=== PATIENT | male | born 1960 | race Caucasian/White ===

== ENCOUNTER 2019-10-28 11:29 | Emergency (ER) | payer MEDICARE, SELFPAY ==
[2019-10-28 12:04] VITALS: BP 120/81; PULSE 82; RESP 17; TEMP 37.1; O2SAT 97; BMI 18.0
--- NOTE | 2019-10-28 14:05 | W.ED.GENADLT ---
HPI - General Adult General: Chief complaint: General Medical Stated complaint: head cold/throat pain Time Seen by Provider: 10/28/19 14:04 Source: patient and family Mode of arrival: ambulatory Limitations: no limitations History of Present Illness: HPI narrative: Patient is a 59-year-old male with complaints of cough, congestion, sore throat over the past 1 to 2 days Onset (ago): day(s) Severity: mild Relieving factors: none Exacerbating factors: none Associated symptoms: Reports no associated symptoms; Deny chest pain, dyspnea, headache(s), malaise, nausea, rash, palpitations, syncope or vomiting Treatments prior to arrival: none Review of Systems Const: Denies: fever, chills, body aches, change in appetite, fatigue, malaise or night sweats Eyes: Denies: change in vision or blurry vision ENMT: Reports: throat pain, painful swallowing, nasal discharge and nasal congestion; Denies: enlarged tonsils, mouth pain, swelling of lips/tongue, oral sores/lesions, dental pain, ear pain, ear discharge, tinnitus, nose bleeds, post nasal drip or facial/sinus pain Card: Denies: chest pain, palpitations, irregular heart rhythm, lightheadedness, syncope or shortness of breath on exertion Resp: Reports: productive cough and chest congestion; Denies: shortness of breath, wheezing, stridor, pain on inspiration or coughing up blood GI: Denies: abdominal pain, nausea, vomiting, heartburn/indigestion or diarrhea : Denies: difficulty urinating or painful urination Musc: Denies: neck pain, back pain or joint pain Skin/Breast: Denies: rash Neuro: Denies: headache PFSH ED PFSH: Statuses (acute, chronic, etc) shown below reflect problem list status as previously entered and may not be historically accurate Social History Smoking and tobacco status: never smoked Physical Exam Const: COMMON NORMALS: no apparent distress, oriented x3 and alert GENERAL APPEARANCE: cooperative HENMT: COMMON NORMALS: normocephalic, head/scalp atraumatic, external ears normal, EAC's normal, TM's normal bilaterally and external nose normal HEAD & SCALP: normal to inspection, normocephalic and atraumatic FACE & SINUS: normal facial exam NOSE: external nose normal EXTERNAL EAR: Yes external ears normal EXTERNAL AUDITORY CANAL: EAC's normal TYMPANIC MEMBRANE: TM's normal bilaterally MOUTH: oral and palatal mucosa normal THROAT: posterior oropharynx normal, tonsils normal and uvula midline Eye: COMMON NORMALS: PERRL and EOMs intact bilaterally PUPIL: Yes PERRL Resp: COMMON NORMALS: normal respiratory effort, no retractions, no use of accessory muscles and clear to auscultation bilaterally AUSCULTATION: clear to auscultation bilaterally Cardio: COMMON NORMALS: regular rate and regular rhythm RATE: regular rate RHYTHM: regular rhythm Neuro: COMMON NORMALS: oriented x3 SENSORIUM/ORIENTATION: Yes alert Skin: COMMON NORMALS: no rashes or lesions noted GENERAL SKIN EXAM: no rashes or lesions noted Course Vital Signs: Vital signs: Vital Signs Temperature 98.7 F 10/28/19 12:04 Pulse Rate 82 10/28/19 12:04 Respiratory Rate 17 10/28/19 12:04 Blood Pressure 120/81 10/28/19 12:04 Pulse Oximetry 97 10/28/19 12:04 Discharge Plan Discharge Patient Disposition: Home, Self-Care Clinical Impression: Upper respiratory infection Condition: Stable Prescriptions: No Action garlic 1,000 mg Capsule 1,000 mg PO DAILY RF: 0 iron 325 mg (65 mg iron) Tablet 65 mg PO DAILY RF: 0 Vitamin D2 50,000 unit Capsule See Rx Instructions .ROUTE .COMPLEX RF: 0 fluticasone propionate 50 mcg/actuation [place],Suspension 1 spray INTRANASAL DAILY RF: 0 loratadine 10 mg Tablet 10 mg PO DAILY RF: 0 potassium chloride 20 mEq Tablet Extended Release 20 meq PO BID RF: 0 mupirocin 2 % Ointment 1 applic TOPICAL BID RF: 0 Discharge Orders: Discharge Order (Routine); Ordered 10/28/19 Ordered By: Maggi Alfaro Referrals: Mikayla Alfonso FNP-C [Primary Care Provider] - Discharge Diet: Usual diet Activity Restrictions/Additional Instructions: Follow up with primary care in a week for continued symptoms. As discussed you may use [id number] throat lozenges and Mucinex DM to help with cough/congestion. Coding Level of Care Code ED Test Lead Application Testing for Rossy Delgado
== END 2019-10-28 14:23 | disposition home or self-care (01) ==
PROVIDERS: Emergency Provider Emergency Medicine; Family Provider Nurse Practitioner Family; PCP Nurse Practitioner Family
DX: J06.9 Acute upper respiratory infection, unspecified (principal)
CPT/HCPCS: 99281

== ENCOUNTER → 2019-11-19 15:29 | Outpatient (BNVA) | payer MEDICARE, MEDICAID, SELFPAY | PROVIDERS: Family Provider Nurse Practitioner Family; PCP Nurse Practitioner Family; Visit Provider Nurse Practitioner Family | DX: Z13.6 Encounter for screening for cardiovascular disorders (principal); E87.6 Hypokalemia; E61.1 Iron deficiency; J98.8 Other specified respiratory disorders; E55.9 Vitamin D deficiency, unspecified | CPT/HCPCS: 80053; 80061; 84443; 85025 ==

== ENCOUNTER → 2020-04-13 14:19 | Outpatient (BNVA) | payer MEDICARE, MEDICAID, SELFPAY | PROVIDERS: Family Provider Nurse Practitioner Family; PCP Nurse Practitioner Family; Visit Provider Nurse Practitioner Family | DX: E61.1 Iron deficiency (principal); E55.9 Vitamin D deficiency, unspecified; E87.6 Hypokalemia | CPT/HCPCS: 80053; 82306; 82728; 83550; 85025 ==

== ENCOUNTER → 2021-02-25 13:39 | Outpatient (BNVA) | payer MEDICARE, SELFPAY | PROVIDERS: Family Provider Nurse Practitioner Family; PCP Nurse Practitioner Family; Visit Provider Nurse Practitioner Family | DX: E87.6 Hypokalemia (principal); E55.9 Vitamin D deficiency, unspecified; Z13.6 Encounter for screening for cardiovascular disorders; H66.91 Otitis media, unspecified, right ear; H60.91 Unspecified otitis externa, right ear; K62.5 Hemorrhage of anus and rectum; E61.1 Iron deficiency; H60.501 Unspecified acute noninfective otitis externa, right ear; R53.83 Other fatigue | CPT/HCPCS: 80053; 80061; 82306; 84443; 85025 ==

== ENCOUNTER → 2021-03-01 13:35 | Outpatient (BNVA) | payer MEDICARE, SELFPAY | PROVIDERS: Family Provider Nurse Practitioner Family; PCP Nurse Practitioner Family; Visit Provider Nurse Practitioner Family | DX: K62.5 Hemorrhage of anus and rectum (principal) | CPT/HCPCS: 82272 ==

== ENCOUNTER → 2021-09-13 09:43 | Outpatient (BNVA) | payer MEDICARE, SELFPAY | PROVIDERS: Family Provider Nurse Practitioner Family; PCP Nurse Practitioner Family; Visit Provider Nurse Practitioner Family | DX: E87.6 Hypokalemia (principal); E61.1 Iron deficiency; E55.9 Vitamin D deficiency, unspecified; L98.9 Disorder of the skin and subcutaneous tissue, unspecified; Z23 Encounter for immunization; Z79.899 Other long term (current) drug therapy | CPT/HCPCS: 80053; 82306; 82728; 83550; 84443; 85025 ==

== ENCOUNTER → 2021-09-20 15:38 | Outpatient (BNVA) | payer MEDICARE, SELFPAY | PROVIDERS: Family Provider Nurse Practitioner Family; PCP Nurse Practitioner Family; Visit Provider Nurse Practitioner Family | DX: E87.6 Hypokalemia (principal) | CPT/HCPCS: 80053 ==

== ENCOUNTER → 2021-12-07 11:38 | Outpatient (BNVA) | payer MEDICARE, SELFPAY | PROVIDERS: Family Provider Nurse Practitioner Family; PCP Nurse Practitioner Family; Visit Provider Nurse Practitioner Family | DX: E87.6 Hypokalemia (principal); E55.9 Vitamin D deficiency, unspecified; E61.1 Iron deficiency | CPT/HCPCS: 80053; 82306; 83540; 85025 ==

== ENCOUNTER → 2022-10-20 14:35 | Outpatient (BNVA) | payer MEDICARE, SELFPAY | PROVIDERS: Family Provider Nurse Practitioner Family; PCP Nurse Practitioner Family; Visit Provider Nurse Practitioner Family | DX: E55.9 Vitamin D deficiency, unspecified (principal); E87.6 Hypokalemia; Z12.5 Encounter for screening for malignant neoplasm of prostate; Z13.6 Encounter for screening for cardiovascular disorders; E61.1 Iron deficiency; Z79.899 Other long term (current) drug therapy | CPT/HCPCS: 80053; 80061; 82306; 83540; 84443; 85025 ==

== ENCOUNTER → 2023-04-06 09:09 | Outpatient (BNVA) | payer MEDICARE, SELFPAY | PROVIDERS: Family Provider Nurse Practitioner Family; PCP Nurse Practitioner Family; Visit Provider Nurse Practitioner Family | DX: L85.3 Xerosis cutis (principal); D22.62 Melanocytic nevi of left upper limb, including shoulder; L81.4 Other melanin hyperpigmentation; Z12.83 Encounter for screening for malignant neoplasm of skin; L57.8 Other skin changes due to chronic exposure to nonionizing radiation; L98.8 Other specified disorders of the skin and subcutaneous tissue; L91.8 Other hypertrophic disorders of the skin; L82.1 Other seborrheic keratosis; L57.0 Actinic keratosis; L90.5 Scar conditions and fibrosis of skin; D22.72 Melanocytic nevi of left lower limb, including hip; L72.0 Epidermal cyst | CPT/HCPCS: 17000; 17003; 99213 ==

== ENCOUNTER → 2023-06-20 10:11 | Outpatient (BNVA) | payer MEDICARE, SELFPAY | PROVIDERS: Family Provider Nurse Practitioner Family; PCP Nurse Practitioner Family; Visit Provider Nurse Practitioner Family | DX: Z13.29 Encounter for screening for other suspected endocrine disorder (principal); E55.9 Vitamin D deficiency, unspecified; E61.1 Iron deficiency | CPT/HCPCS: 80053; 80061; 82306; 83540; 84443; 85025 ==

== ENCOUNTER → 2023-07-13 11:13 | Outpatient (BNVA) | payer MEDICARE, SELFPAY | PROVIDERS: Family Provider Nurse Practitioner Family; PCP Nurse Practitioner Family; Visit Provider Nurse Practitioner Family | DX: D69.6 Thrombocytopenia, unspecified (principal); R79.89 Other specified abnormal findings of blood chemistry; E87.6 Hypokalemia | CPT/HCPCS: 80053; 85025 ==

== ENCOUNTER → 2023-11-17 10:18 | Outpatient (BNVA) | payer MEDICARE, SELFPAY | PROVIDERS: Family Provider Nurse Practitioner Family; PCP Nurse Practitioner Family; Visit Provider Nurse Practitioner Family | DX: Z13.220 Encounter for screening for lipoid disorders (principal); E87.6 Hypokalemia; E61.1 Iron deficiency; E55.9 Vitamin D deficiency, unspecified | CPT/HCPCS: 80053; 80061; 82306; 83540; 84443; 85025 ==

== ENCOUNTER → 2023-11-22 10:04 | Outpatient (BNVA) | payer MEDICARE, SELFPAY | PROVIDERS: Family Provider Nurse Practitioner Family; PCP Nurse Practitioner Family; Visit Provider Nurse Practitioner Family | DX: K62.5 Hemorrhage of anus and rectum (principal); D64.9 Anemia, unspecified; E87.6 Hypokalemia; E61.1 Iron deficiency | CPT/HCPCS: 80048; 85025 ==

== ENCOUNTER → 2024-04-05 09:30 | Outpatient (BNVA) | payer MEDICARE, SELFPAY | PROVIDERS: Family Provider Nurse Practitioner Family; PCP Nurse Practitioner Family; Visit Provider Nurse Practitioner Family | DX: L02.92 Furuncle, unspecified (principal); S00.96XA Insect bite (nonvenomous) of unspecified part of head, initial encounter; T07.XXXA Unspecified multiple injuries, initial encounter; L57.8 Other skin changes due to chronic exposure to nonionizing radiation; L72.0 Epidermal cyst; D22.62 Melanocytic nevi of left upper limb, including shoulder | CPT/HCPCS: 99214 ==

== ENCOUNTER 2024-04-10 10:56 | Oncology outpatient (recurring) (ONCR) | payer MEDICARE, SELFPAY ==
[2024-04-10 12:17] LABS: Add Urine Microscopic? YES; Bilirubin Urine 1+ (Negative); Blood Urine 2+ (Negative); Glucose Urine UA Norm (Normal); Ketones Urine Negative (Negative); Leukocyte Esterase Urine Negative (Negative); Nitrate Urine Negative (Negative); Protein Urine Neg (Negative); Reticulocyte % 1.1 % (0.5-2.0); Urine Appearance Clear (CLEAR); Urine Color Yellow (Yellow); Urobilinogen Urine Norm (Negative); pH Urine 5 (5-7)
[2024-04-10 12:18] LABS: Add Urine Culture? Yes; Bacteria Urine 2+ /hpf; Basophils % 0.3 %; Eosinophils # 0.1 10^3/uL (0.0-0.8); Eosinophils % 1.1 %; Hematocrit 33.6 % (37-53); Lymphocytes # 1.2 10^3/uL (0.8-4.8); Lymphocytes % 19.8 %; Mean Corpuscular HGB Conc 35.1 g/dL (30-55); Mean Corpuscular Hemoglobin 30.3 pg (27-33); Mean Corpuscular Volume 86.2 fl (82-101); Mean Platelet Volume 10.7 fL (7.4-10.4); Monocytes # 0.5 10^3/uL (0.2-0.9); Monocytes % 7.4 %; Neutrophils # 4.41 10^3/uL (1.8-7.7); Neutrophils % 71.2 %; Nucleated Red Blood Cells % 0 %; Platelet Count 139 10^3/cmm (157-399); RBC Urine 0-4 /hpf (0-2); Red Cell Distribution Width 13.2 % (12.1-15.1); Squamous Epithelial Cell Urine 0-4 /hpf (0-5); WBC Urine 25-40 /hpf (0-5)
[2024-04-10 12:21] LABS: Erythrocyte Sedimentation Rate 5 mm/hr (0-10)
[2024-04-10 12:28] LABS: INR 0.92 (0.8-1.2)
[2024-04-10 12:42] LABS: Alanine Aminotransferase 7 U/L (0-41); Albumin Level 4.4 g/dL (3.5-5.2); Alkaline Phosphatase 92 U/L (40-130); Anion Gap 15.8 (5-19); Aspartate Amino Transferase 12 U/L (0-40); Blood Urea Nitrogen 11 mg/dL (8-23); Calcium 9.8 mg/dL (8.5-10.5); Carbon Dioxide 28 mmol/L (22-29); Chloride 99 mmol/L (98-107); Creatinine Clr Calc Pharmacy 52.1288; Free T4 Free Thyroxine 1.35 ng/dL (0.82-1.77); Globulin 3.2 g/dL (1.3-4.6); Glomerular Filtration Rate 60.8 mL/min (90-130); Glucose 100 mg/dL (65-115); Immunoglobulin IGA 281 mg/dL (70-400); Immunoglobulin IGG 1256 mg/dL (700-1600); Immunoglobulin IGM 31 mg/dL (40-230); Lactate Dehydrogenase 142 U/L (135-225); Osmolality Calculated 289 mOsm/kg (285-295); Sodium 140 mmol/L (136-145); Thyroid Stimulating Hormone 1.25 uIU/mL (0.27-4.20); Total Bilirubin 0.7 mg/dL (0.15-1.2); Total Protein 7.6 g/dL (6.6-8.7)
[2024-04-10 12:49] LABS: Potassium 2.8 mmol/L (3.5-5.1)
[2024-04-10 12:59] LABS: Hepatitis A Antibody IgM Non-Reactive (Nonreactive); Hepatitis B Core AB, Total Non-Reactive (Nonreactive); Hepatitis B Surface AB < 3.5 (11.5-1000); Hepatitis B Surface Antigen Non-Reactive (Nonreactive); Hepatitis C Virus Antibody Non-Reactive (Nonreactive)
[2024-04-10 14:57] LABS: Ferritin 163 ng/mL (30-400); Iron 54 ug/dL (59-158); Percent Saturation 20.3 % (20-50); Total Iron Binding Capacity 266 mcg/dl; Unsaturated Iron Binding 212 ug/dL (112-347)
[2024-04-10 15:13] LABS: Vitamin B12 702 pg/mL (232-1245)
[2024-04-10 15:42] LABS: Folate Level 2.5 ng/mL (4.5-32.2)
[2024-04-11 08:31] LABS: PROTEIN, TOTAL 7.5 g/dL (6.1-8.1)
[2024-04-11 11:44] LABS: KAPPA LIGHT CHAIN, FREE, SERUM 81.1 mg/L (3.3-19.4); KAPPA/LAMBDA LIGHT CHAINS FREE 3.59 (0.26-1.65); LAMBDA LIGHT CHAIN, FREE, SERU 22.6 mg/L (5.7-26.3)
[2024-04-11 12:39] LABS: ABNORMAL PROTEIN BAND 1 0.7 g/dL (NONE DETECTED); ALBUMIN 4.3 g/dL (3.8-4.8); ALPHA 1 GLOBULIN 0.3 g/dL (0.2-0.3); ALPHA 2 GLOBULIN 0.7 g/dL (0.5-0.9); BETA 1 GLOBULIN 0.5 g/dL (0.4-0.6); BETA 2 GLOBULIN 0.4 g/dL (0.2-0.5); GAMMA GLOBULIN 1.3 g/dL (0.8-1.7)
[2024-04-12 13:00] LABS: Creatinine, Random Urine 226 mg/dL (20-320); Protein, Total, Random 44 mg/dL (5-25); Protein/Creatinine Ratio 0.195 (0.025-0.148); Protein/Creatinine Ratio 195 mg/g creat (25-148)
[2024-04-12 23:39] LABS: Copper Level 109 mcg/dL (70-175); Zinc Level, Serum or Plasma 89 mcg/dL (60-130)
[2024-04-13 04:16] LABS: Methylmalonic Acid 127 nmol/L (69-390)
[2024-04-16 14:55] LABS: Soluble Transferrin Receptor 0.89 mg/L (0.76-1.76)
[2024-04-17 12:11] LABS: Abnormal Protein Band 1 16 mg/dL (NONE DETECTED); Albumin,Urine Random 9 %; Alpha-1-Globulins Urine Random 14 %; Alpha-2-Globulins Urine Random 15 %; Beta-Globulin,Urine Random 50 %; Gamma Globulin,Urine Random 12 %
== END 2024-04-21 23:59 | disposition home or self-care (01) ==
PROVIDERS: Internal Medicine; Family Provider Nurse Practitioner Family; PCP Nurse Practitioner Family; Visit Provider Internal Medicine Medical Oncology
DX: E87.6 Hypokalemia (principal); D69.49 Other primary thrombocytopenia; R53.83 Other fatigue; E55.9 Vitamin D deficiency, unspecified; E61.1 Iron deficiency
CPT/HCPCS: 36415; 80053; 81001; 82525; 82570; 82607; 82728; 82746; 82784; 83540; 83550; 83615; 83883; 83921; 84155; 84156; 84165; 84166; 84238; 84439; 84443; 84630; 85025; 85045; 85610; 85651; 86140; 86335; 86705; 86706; 86709; 86803; 87340; 99203

== ENCOUNTER 2024-05-30 14:00 | Oncology outpatient (recurring) (ONCR) | payer MEDICARE, SELFPAY ==
[2024-05-23 14:05] LABS: Basophils % 0.2 %; Eosinophils # 0.1 10^3/uL (0.0-0.8); Eosinophils % 1.8 %; Hematocrit 28.1 % (37-53); Lymphocytes # 0.9 10^3/uL (0.8-4.8); Lymphocytes % 21.4 %; Mean Corpuscular HGB Conc 35.2 g/dL (30-55); Mean Corpuscular Volume 88.1 fl (82-101); Mean Platelet Volume 10.3 fL (7.4-10.4); Monocytes # 0.4 10^3/uL (0.2-0.9); Monocytes % 8.8 %; Neutrophils # 2.93 10^3/uL (1.8-7.7); Neutrophils % 67.6 %; Nucleated Red Blood Cells % 0 %; Platelet Count 139 10^3/cmm (157-399); Red Blood Count 3.19 10^6/uL (3.85-5.65); Red Cell Distribution Width 13.2 % (12.1-15.1); White Blood Count 4.34 10^3/uL (3.29-11.43)
[2024-05-23 14:22] LABS: Alanine Aminotransferase 8 U/L (0-41); Albumin Level 3.9 g/dL (3.5-5.2); Alkaline Phosphatase 90 U/L (40-130); Anion Gap 15.6 (5-19); Aspartate Amino Transferase 11 U/L (0-40); Blood Urea Nitrogen 5 mg/dL (8-23); Calcium 8.9 mg/dL (8.5-10.5); Carbon Dioxide 27 mmol/L (22-29); Chloride 102 mmol/L (98-107); Globulin 2.8 g/dL (1.3-4.6); Glomerular Filtration Rate 55.4 mL/min (90-130); Glucose 110 mg/dL (65-115); Osmolality Calculated 292 mOsm/kg (285-295); Sodium 142 mmol/L (136-145); Total Bilirubin 0.6 mg/dL (0.15-1.2); Total Protein 6.7 g/dL (6.6-8.7)
[2024-05-23 14:42] LABS: Potassium 2.6 mmol/L (3.5-5.1)
[2024-05-23 15:32] LABS: Ferritin 135 ng/mL (30-400); Iron 62 ug/dL (59-158); Percent Saturation 29.1 % (20-50); Total Iron Binding Capacity 213 mcg/dl; Unsaturated Iron Binding 151 ug/dL (112-347)
[2024-05-30 14:17] LABS: Basophils % 0.8 %; Eosinophils # 0.1 10^3/uL (0.0-0.8); Eosinophils % 2.4 %; Hematocrit 30.4 % (37-53); Lymphocytes # 1.2 10^3/uL (0.8-4.8); Lymphocytes % 31.5 %; Mean Corpuscular HGB Conc 33.2 g/dL (30-55); Mean Corpuscular Hemoglobin 30.7 pg (27-33); Mean Corpuscular Volume 92.4 fl (82-101); Mean Platelet Volume 9.6 fL (7.4-10.4); Monocytes # 0.3 10^3/uL (0.2-0.9); Monocytes % 7.4 %; Neutrophils # 2.19 10^3/uL (1.8-7.7); Neutrophils % 57.9 %; Nucleated Red Blood Cells % 0 %; Platelet Count 148 10^3/cmm (157-399); Red Blood Count 3.29 10^6/uL (3.85-5.65); Red Cell Distribution Width 13.5 % (12.1-15.1); White Blood Count 3.78 10^3/uL (3.29-11.43)
[2024-05-30 14:35] LABS: Alanine Aminotransferase 10 U/L (0-41); Albumin Level 4.1 g/dL (3.5-5.2); Alkaline Phosphatase 84 U/L (40-130); Aspartate Amino Transferase 14 U/L (0-40); Blood Urea Nitrogen 7 mg/dL (8-23); Calcium 9.2 mg/dL (8.5-10.5); Carbon Dioxide 27 mmol/L (22-29); Chloride 104 mmol/L (98-107); Creatinine Clr Calc Pharmacy 43.7057; Globulin 2.6 g/dL (1.3-4.6); Glomerular Filtration Rate 60.8 mL/min (90-130); Glucose 98 mg/dL (65-115); Osmolality Calculated 288 mOsm/kg (285-295); Sodium 140 mmol/L (136-145); Total Bilirubin 0.5 mg/dL (0.15-1.2); Total Protein 6.7 g/dL (6.6-8.7)
== END 2024-06-22 23:55 | disposition home or self-care (01) ==
PROVIDERS: Internal Medicine; Nurse Practitioner Family; Family Provider Nurse Practitioner Family; PCP Nurse Practitioner Family; Visit Provider Internal Medicine Medical Oncology
DX: Z53.9 Procedure and treatment not carried out, unspecified reason; E87.6 Hypokalemia
CPT/HCPCS: 36415; 80053; 82728; 83540; 83550; 85025; 99214

== ENCOUNTER 2024-08-21 13:53 | Oncology outpatient (recurring) (ONCR) | payer MEDICARE, SELFPAY ==
[2024-08-21 14:34] LABS: Basophils % 0.3 %; Eosinophils # 0.1 10^3/uL (0.0-0.8); Eosinophils % 1.1 %; Hematocrit 29.8 % (37-53); Lymphocytes % 15.8 %; Mean Corpuscular HGB Conc 36.2 g/dL (30-55); Mean Corpuscular Hemoglobin 31.1 pg (27-33); Mean Corpuscular Volume 85.9 fl (82-101); Mean Platelet Volume 9.9 fL (7.4-10.4); Monocytes # 0.5 10^3/uL (0.2-0.9); Monocytes % 7.1 %; Neutrophils % 75.4 %; Nucleated Red Blood Cells % 0 %; Platelet Count 154 10^3/cmm (157-399); Red Blood Count 3.47 10^6/uL (3.85-5.65); Red Cell Distribution Width 12.4 % (12.1-15.1)
[2024-08-21 15:06] LABS: Alanine Aminotransferase 7 U/L (0-41); Albumin Level 4.3 g/dL (3.5-5.2); Alkaline Phosphatase 88 U/L (40-130); Anion Gap 15.1 (5-19); Aspartate Amino Transferase 13 U/L (0-40); Blood Urea Nitrogen 7 mg/dL (8-23); Calcium 9.1 mg/dL (8.5-10.5); Carbon Dioxide 26 mmol/L (22-29); Chloride 102 mmol/L (98-107); Globulin 2.5 g/dL (1.3-4.6); Glomerular Filtration Rate 55.4 mL/min (90-130); Glucose 115 mg/dL (65-115); Immunoglobulin IGA 274 mg/dL (70-400); Immunoglobulin IGG 1145 mg/dL (700-1600); Immunoglobulin IGM 34 mg/dL (40-230); Osmolality Calculated 289 mOsm/kg (285-295); Potassium 3.1 mmol/L (3.5-5.1); Sodium 140 mmol/L (136-145); Total Bilirubin 0.7 mg/dL (0.15-1.2); Total Protein 6.8 g/dL (6.6-8.7)
[2024-08-21 15:20] LABS: Ferritin 177 ng/mL (30-400); Iron 82 ug/dL (59-158); Percent Saturation 32.1 % (20-50); Total Iron Binding Capacity 255 mcg/dl; Unsaturated Iron Binding 173 ug/dL (112-347)
[2024-08-22 07:10] LABS: PROTEIN, TOTAL 6.6 g/dL (6.1-8.1)
[2024-08-22 15:48] LABS: ABNORMAL PROTEIN BAND 1 0.6 g/dL (NONE DETECTED); ALBUMIN 3.9 g/dL (3.8-4.8); ALPHA 1 GLOBULIN 0.3 g/dL (0.2-0.3); ALPHA 2 GLOBULIN 0.6 g/dL (0.5-0.9); BETA 1 GLOBULIN 0.4 g/dL (0.4-0.6); BETA 2 GLOBULIN 0.3 g/dL (0.2-0.5); GAMMA GLOBULIN 1.1 g/dL (0.8-1.7)
[2024-08-26 16:15] LABS: KAPPA LIGHT CHAIN, FREE, SERUM 76.5 mg/L (3.3-19.4); KAPPA/LAMBDA LIGHT CHAINS FREE 3.77 (0.26-1.65); LAMBDA LIGHT CHAIN, FREE, SERU 20.3 mg/L (5.7-26.3)
== END 2024-08-22 23:59 | disposition home or self-care (01) ==
PROVIDERS: Family Provider Nurse Practitioner Family; PCP Nurse Practitioner Family; Visit Provider Internal Medicine Medical Oncology
DX: Z53.9 Procedure and treatment not carried out, unspecified reason (principal); E61.1 Iron deficiency; E87.6 Hypokalemia; D69.49 Other primary thrombocytopenia; R53.83 Other fatigue; E55.9 Vitamin D deficiency, unspecified
CPT/HCPCS: 36415; 80053; 82728; 82784; 83540; 83550; 83883; 84155; 84165; 85025; 99214

== ENCOUNTER 2024-10-09 11:54 | Oncology outpatient (recurring) (ONCR) | payer MEDICARE, SELFPAY ==
[2024-10-09 12:23] LABS: Basophils % 0.6 %; Eosinophils # 0.1 10^3/uL (0.0-0.8); Eosinophils % 1.4 %; Lymphocytes # 0.9 10^3/uL (0.8-4.8); Lymphocytes % 17.2 %; Mean Corpuscular HGB Conc 33.9 g/dL (30-55); Mean Corpuscular Hemoglobin 30.7 pg (27-33); Mean Corpuscular Volume 90.6 fl (82-101); Mean Platelet Volume 9.2 fL (7.4-10.4); Monocytes # 0.5 10^3/uL (0.2-0.9); Monocytes % 9.5 %; Neutrophils # 3.61 10^3/uL (1.8-7.7); Neutrophils % 71.1 %; Nucleated Red Blood Cells % 0 %; Platelet Count 163 10^3/cmm (157-399); Red Blood Count 3.42 10^6/uL (3.85-5.65); Red Cell Distribution Width 13.1 % (12.1-15.1); White Blood Count 5.07 10^3/uL (3.29-11.43)
[2024-10-09 12:42] LABS: Alanine Aminotransferase 8 U/L (0-41); Alkaline Phosphatase 101 U/L (40-130); Anion Gap 11.1 (5-19); Aspartate Amino Transferase 14 U/L (0-40); Blood Urea Nitrogen 6 mg/dL (8-23); Calcium 9.6 mg/dL (8.5-10.5); Carbon Dioxide 31 mmol/L (22-29); Chloride 101 mmol/L (98-107); Ferritin 116 ng/mL (30-400); Globulin 2.9 g/dL (1.3-4.6); Glomerular Filtration Rate 60.8 mL/min (90-130); Glucose 95 mg/dL (65-115); Iron 61 ug/dL (59-158); Osmolality Calculated 287 mOsm/kg (285-295); Percent Saturation 22.5 % (20-50); Potassium 3.1 mmol/L (3.5-5.1); Sodium 140 mmol/L (136-145); Total Bilirubin 0.5 mg/dL (0.15-1.2); Total Iron Binding Capacity 271 mcg/dl; Total Protein 6.9 g/dL (6.6-8.7); Unsaturated Iron Binding 210 ug/dL (112-347)
== END 2024-10-22 23:59 | disposition home or self-care (01) ==
PROVIDERS: Nurse Practitioner Family; Family Provider Nurse Practitioner Family; PCP Nurse Practitioner Family; Visit Provider Internal Medicine Medical Oncology
DX: D50.9 Iron deficiency anemia, unspecified (principal)
CPT/HCPCS: 36415; 80053; 82728; 83540; 83550; 85025

== ENCOUNTER 2024-11-21 12:13 | Oncology outpatient (recurring) (ONCR) | payer MEDICARE, SELFPAY ==
[2024-11-21 13:22] LABS: Basophils % 0.8 %; Eosinophils # 0.1 10^3/uL (0.0-0.8); Eosinophils % 1.3 %; Hematocrit 31.5 % (37-53); Lymphocytes # 0.9 10^3/uL (0.8-4.8); Lymphocytes % 22.3 %; Mean Corpuscular HGB Conc 33.7 g/dL (30-55); Mean Corpuscular Hemoglobin 30.5 pg (27-33); Mean Corpuscular Volume 90.5 fl (82-101); Monocytes # 0.3 10^3/uL (0.2-0.9); Monocytes % 7.3 %; Neutrophils # 2.69 10^3/uL (1.8-7.7); Nucleated Red Blood Cells % 0 %; Platelet Count 127 10^3/cmm (157-399); Red Blood Count 3.48 10^6/uL (3.85-5.65); Red Cell Distribution Width 12.8 % (12.1-15.1); White Blood Count 3.95 10^3/uL (3.29-11.43)
[2024-11-21 13:36] LABS: Alanine Aminotransferase 8 U/L (0-41); Albumin Level 4.1 g/dL (3.5-5.2); Alkaline Phosphatase 97 U/L (40-130); Anion Gap 13.3 (5-19); Aspartate Amino Transferase 12 U/L (0-40); Blood Urea Nitrogen 11 mg/dL (8-23); Calcium 9.8 mg/dL (8.5-10.5); Carbon Dioxide 28 mmol/L (22-29); Chloride 100 mmol/L (98-107); Ferritin 91 ng/mL (30-400); Globulin 2.8 g/dL (1.3-4.6); Glomerular Filtration Rate 60.8 mL/min (90-130); Glucose 107 mg/dL (65-115); Iron 88 ug/dL (59-158); Osmolality Calculated 286 mOsm/kg (285-295); Percent Saturation 33.7 % (20-50); Potassium 3.3 mmol/L (3.5-5.1); Sodium 138 mmol/L (136-145); Total Bilirubin 0.5 mg/dL (0.15-1.2); Total Iron Binding Capacity 261 mcg/dl; Total Protein 6.9 g/dL (6.6-8.7); Unsaturated Iron Binding 173 ug/dL (112-347)
[2024-11-21 13:53] LABS: Immunoglobulin IGA 249 mg/dL (70-400); Immunoglobulin IGG 1221 mg/dL (700-1600); Immunoglobulin IGM 32 mg/dL (40-230)
[2024-11-21 14:13] LABS: Magnesium 1.4 mg/dL (1.7-2.3)
[2024-11-22 08:05] LABS: PROTEIN, TOTAL 6.8 g/dL (6.1-8.1)
[2024-11-22 14:25] LABS: KAPPA LIGHT CHAIN, FREE, SERUM 95.1 mg/L (3.3-19.4); KAPPA/LAMBDA LIGHT CHAINS FREE 4.08 (0.26-1.65); LAMBDA LIGHT CHAIN, FREE, SERU 23.3 mg/L (5.7-26.3)
[2024-11-22 20:10] LABS: ABNORMAL PROTEIN BAND 1 0.7 g/dL (NONE DETECTED); ALBUMIN 3.9 g/dL (3.8-4.8); ALPHA 1 GLOBULIN 0.3 g/dL (0.2-0.3); ALPHA 2 GLOBULIN 0.7 g/dL (0.5-0.9); BETA 1 GLOBULIN 0.4 g/dL (0.4-0.6); BETA 2 GLOBULIN 0.3 g/dL (0.2-0.5); GAMMA GLOBULIN 1.2 g/dL (0.8-1.7)
== END 2024-11-22 23:59 | disposition home or self-care (01) ==
PROVIDERS: Nurse Practitioner; Nurse Practitioner Family; Family Provider Nurse Practitioner Family; PCP Nurse Practitioner Family; Visit Provider Internal Medicine
DX: D50.9 Iron deficiency anemia, unspecified (principal); D47.2 Monoclonal gammopathy; E87.6 Hypokalemia
CPT/HCPCS: 36415; 80053; 82728; 82784; 83540; 83550; 83735; 83883; 84155; 84165; 85025; 86334

== ENCOUNTER 2024-12-04 11:30 | Oncology outpatient (recurring) (ONCR) | payer MEDICARE, SELFPAY ==
[2024-11-27 08:33] LABS: CREATININE, 24 HOUR URINE 0.86 g/24 h (0.50-2.15); PROTEIN, TOTAL, 24 HR UR 105 mg/24 h (<150); Protein/Creatinine Ratio 0.122 (<0.100); Protein/Creatinine Ratio 122 mg/g creat (<100)
[2024-11-29 10:44] LABS: ABNORMAL PROTEIN BAND 1 28 mg/24 h (NONE DETECTED); ALBUMIN 14 %; ALPHA-1-GLOBULINS 10 %; ALPHA-2-GLOBULINS 11 %; BETA GLOBULINS 44 %; GAMMA GLOBULINS 21 %
== END 2024-12-20 23:59 | disposition home or self-care (01) ==
PROVIDERS: Nurse Practitioner Family; Family Provider Nurse Practitioner Family; PCP Nurse Practitioner Family; Visit Provider Internal Medicine
DX: Z53.9 Procedure and treatment not carried out, unspecified reason (principal)
CPT/HCPCS: 84156; 84166

== ENCOUNTER 2025-01-15 12:08 | Oncology outpatient (recurring) (ONCR) | payer MEDICARE, SELFPAY ==
[2025-01-15 12:44] LABS: Basophils % 0.6 %; Eosinophils # 0.1 10^3/uL (0.0-0.8); Hematocrit 29.9 % (37-53); Lymphocytes # 1.1 10^3/uL (0.8-4.8); Lymphocytes % 31.1 %; Mean Corpuscular HGB Conc 34.4 g/dL (30-55); Mean Corpuscular Hemoglobin 30.7 pg (27-33); Mean Platelet Volume 10.1 fL (7.4-10.4); Monocytes # 0.4 10^3/uL (0.2-0.9); Monocytes % 11.1 %; Neutrophils # 1.92 10^3/uL (1.8-7.7); Neutrophils % 54.9 %; Nucleated Red Blood Cells % 0 %; Platelet Count 158 10^3/cmm (157-399); Red Blood Count 3.36 10^6/uL (3.85-5.65)
[2025-01-15 13:09] LABS: Alanine Aminotransferase 6 U/L (0-41); Alkaline Phosphatase 116 U/L (40-130); Aspartate Amino Transferase 13 U/L (0-40); Blood Urea Nitrogen 9 mg/dL (8-23); Calcium 9.6 mg/dL (8.5-10.5); Carbon Dioxide 30 mmol/L (22-29); Chloride 102 mmol/L (98-107); Ferritin 107 ng/mL (30-400); Globulin 2.9 g/dL (1.3-4.6); Glomerular Filtration Rate 60.8 mL/min (90-130); Glucose 72 mg/dL (65-115); Iron 42 ug/dL (59-158); Magnesium 1.6 mg/dL (1.7-2.3); Osmolality Calculated 291 mOsm/kg (285-295); Percent Saturation 15.7 % (20-50); Sodium 142 mmol/L (136-145); Total Bilirubin 0.4 mg/dL (0.15-1.2); Total Iron Binding Capacity 266 mcg/dl; Total Protein 6.9 g/dL (6.6-8.7); Unsaturated Iron Binding 224 ug/dL (112-347)
[2025-01-15 13:10] LABS: Anion Gap 13.3 (5-19); Potassium 3.3 mmol/L (3.5-5.1)
== END 2025-01-20 23:59 | disposition home or self-care (01) ==
PROVIDERS: Family Provider Nurse Practitioner Family; PCP Nurse Practitioner Family; Visit Provider Internal Medicine
DX: D50.9 Iron deficiency anemia, unspecified (principal); D47.2 Monoclonal gammopathy; Z87.891 Personal history of nicotine dependence
CPT/HCPCS: 36415; 80053; 82728; 83540; 83550; 83735; 85025; 99213

== ENCOUNTER 2025-02-07 08:16 | Outpatient (CLI) | payer MEDICARE, SELFPAY ==
--- NOTE | 2025-02-07 08:48 | NM_ITS ---
WS: [id number] NUCLEAR MEDICINE WHOLE BODY BONE SCAN HISTORY: MGUS(MONOCLONAL GAMMOPATHY OF UNKOWN SIGNIFICANCE) COMPARISON: None available. TECHNIQUE: The patient was injected with 25.4 mCi of Technetium 99m HDP and serial whole-body scintigrams have been performed with anterior and posterior images. Marked S-shaped curvature thoracolumbar spine. Mild increased uptake in the facet joints related to the scoliosis and arthritis. No areas of intense uptake or photopenia within the skeleton. Normal appearance of the skull. No rib abnormalities. Normal renal and soft tissue uptake. Mild arthropathy at the ankle joints. NM/NM bone scan whole body* [id number] IMPRESSION: 1. No photopenic defects or intense uptake within the skeleton. 2. S shaped thoracolumbar scoliosis. 3. Normal soft tissue uptake. 4. Mild arthropathy at the ankles.
== END 2025-02-07 08:17 | disposition home or self-care (01) ==
PROVIDERS: PCP Nurse Practitioner Family; Visit Provider Internal Medicine
DX: E87.6 Hypokalemia (principal); E55.9 Vitamin D deficiency, unspecified; E61.1 Iron deficiency; M41.85 Other forms of scoliosis, thoracolumbar region; M12.872 Other specific arthropathies, not elsewhere classified, left ankle and foot; M12.871 Other specific arthropathies, not elsewhere classified, right ankle and foot; R93.7 Abnormal findings on diagnostic imaging of other parts of musculoskeletal system
CPT/HCPCS: 78306; A9561

== ENCOUNTER 2025-04-16 12:12 | Oncology outpatient (recurring) (ONCR) | payer MEDICARE, SELFPAY ==
[2025-04-16 12:34] LABS: Basophils % 0.4 %; Eosinophils # 0.1 10^3/uL (0.0-0.8); Eosinophils % 1.1 %; Hematocrit 28.4 % (37-53); Lymphocytes # 1.1 10^3/uL (0.8-4.8); Lymphocytes % 24.4 %; Mean Corpuscular HGB Conc 33.8 g/dL (30-55); Mean Corpuscular Hemoglobin 28.7 pg (27-33); Mean Platelet Volume 9.9 fL (7.4-10.4); Monocytes # 0.3 10^3/uL (0.2-0.9); Monocytes % 7.6 %; Neutrophils # 2.94 10^3/uL (1.8-7.7); Neutrophils % 66.1 %; Nucleated Red Blood Cells % 0 %; Platelet Count 174 10^3/cmm (157-399); Red Blood Count 3.34 10^6/uL (3.85-5.65); Red Cell Distribution Width 12.9 % (12.1-15.1); White Blood Count 4.46 10^3/uL (3.29-11.43)
[2025-04-16 12:35] LABS: Reticulocyte % 0.8 % (0.5-2.0)
[2025-04-16 12:37] LABS: Erythrocyte Sedimentation Rate 26 mm/hr (0-10)
[2025-04-16 12:50] LABS: Alanine Aminotransferase 6 U/L (0-41); Alkaline Phosphatase 100 U/L (40-130); Anion Gap 16.4 (5-19); Aspartate Amino Transferase 14 U/L (0-40); Blood Urea Nitrogen 11 mg/dL (8-23); Calcium 9.9 mg/dL (8.5-10.5); Carbon Dioxide 28 mmol/L (22-29); Chloride 100 mmol/L (98-107); Creatinine Clr Calc Pharmacy 38.6276; Globulin 3.4 g/dL (1.3-4.6); Glomerular Filtration Rate 50.7 mL/min (90-130); Glucose 116 mg/dL (65-115); Lactate Dehydrogenase 165 U/L (135-225); Osmolality Calculated 292 mOsm/kg (285-295); Potassium 3.4 mmol/L (3.5-5.1); Sodium 141 mmol/L (136-145); Total Bilirubin 0.3 mg/dL (0.15-1.2); Total Protein 7.4 g/dL (6.6-8.7)
[2025-04-16 13:12] LABS: Folate Level 5.5 ng/mL (4.5-32.2)
[2025-04-16 13:25] LABS: Ferritin 119 ng/mL (30-400); Iron 58 ug/dL (59-158); Percent Saturation 23.4 % (20-50); Total Iron Binding Capacity 247 mcg/dl; Unsaturated Iron Binding 189 ug/dL (112-347)
[2025-04-16 13:40] LABS: Vitamin B12 326 pg/mL (232-1245)
== END 2025-04-21 23:59 | disposition home or self-care (01) ==
PROVIDERS: PCP Nurse Practitioner Family; Visit Provider Internal Medicine
DX: D64.9 Anemia, unspecified (principal); D47.2 Monoclonal gammopathy; D50.9 Iron deficiency anemia, unspecified; Z87.891 Personal history of nicotine dependence; Z98.890 Other specified postprocedural states; Z79.899 Other long term (current) drug therapy
CPT/HCPCS: 36415; 80053; 82607; 82728; 82746; 83010; 83540; 83550; 83615; 85025; 85045; 85651; 86140; 99214

== ENCOUNTER → 2025-06-03 09:43 | Outpatient (BNVA) | payer MEDICARE, SELFPAY | PROVIDERS: PCP Nurse Practitioner Family; Visit Provider Nurse Practitioner Family | DX: L57.8 Other skin changes due to chronic exposure to nonionizing radiation (principal); L81.4 Other melanin hyperpigmentation; D22.5 Melanocytic nevi of trunk; L82.1 Other seborrheic keratosis | CPT/HCPCS: 99213 ==

== ENCOUNTER 2025-07-16 12:11 | Oncology outpatient (recurring) (ONCR) | payer MEDICARE, SELFPAY ==
[2025-07-16 12:37] LABS: Hematocrit 33.3 % (37-53); Hemoglobin 11.20 g/dL (11.27-16.99); Mean Corpuscular HGB Conc 33.6 g/dL (30-55); Mean Corpuscular Hemoglobin 30.0 pg (27-33); Mean Corpuscular Volume 89.3 fl (82-101); Nucleated Red Blood Cells % 0 %; Platelet Count 149 10^3/cmm (157-399); Red Blood Count 3.73 10^6/uL (3.85-5.65); White Blood Count 5.05 10^3/uL (3.29-11.43)
[2025-07-16 12:57] LABS: Alanine Aminotransferase 8 U/L (0-41); Albumin Level 4.3 g/dL (3.5-5.2); Alkaline Phosphatase 122 U/L (40-130); Anion Gap 13.5 (5-19); Aspartate Amino Transferase 15 U/L (0-40); Blood Urea Nitrogen 7 mg/dL (8-23); Calcium 10.1 mg/dL (8.5-10.5); Carbon Dioxide 31 mmol/L (22-29); Chloride 100 mmol/L (98-107); Creatinine Clr Calc Pharmacy 45.8423; Globulin 3.4 g/dL (1.3-4.6); Glucose 103 mg/dL (65-115); Osmolality Calculated 290 mOsm/kg (285-295); Potassium 3.5 mmol/L (3.5-5.1); Sodium 141 mmol/L (136-145); Total Protein 7.7 g/dL (6.6-8.7)
[2025-07-17 07:00] LABS: PROTEIN, TOTAL 7.5 g/dL (6.1-8.1)
[2025-07-17 14:10] LABS: KAPPA LIGHT CHAIN, FREE, SERUM 113.9 mg/L (3.3-19.4); KAPPA/LAMBDA LIGHT CHAINS FREE 5.32 (0.26-1.65); LAMBDA LIGHT CHAIN, FREE, SERU 21.4 mg/L (5.7-26.3)
[2025-07-18 08:35] LABS: ALPHA 1 GLOBULIN 0.3 g/dL (0.2-0.3); ALPHA 2 GLOBULIN 0.7 g/dL (0.5-0.9); BETA 1 GLOBULIN 0.4 g/dL (0.4-0.6); BETA 2 GLOBULIN 0.4 g/dL (0.2-0.5)
== END 2025-07-22 23:59 | disposition home or self-care (01) ==
PROVIDERS: Nurse Practitioner Family; PCP Nurse Practitioner Family; Visit Provider Internal Medicine
DX: D47.2 Monoclonal gammopathy (principal); F12.90 Cannabis use, unspecified, uncomplicated; D50.9 Iron deficiency anemia, unspecified; D64.9 Anemia, unspecified
CPT/HCPCS: 36415; 80053; 82784; 83883; 84155; 84165; 85025; 86334; 99214

== ENCOUNTER 2025-09-15 14:35 | Outpatient (CLI) | payer MEDICARE, SELFPAY ==
--- NOTE | 2025-09-15 14:40 | XRR_ITS ---
PROCEDURE INFORMATION: Exam: XR Entire Spine Exam date and time: 09/15/2025 2:48 PM Age: 65 years old Clinical indication: Pain; Other: Thoracic spine; Prior surgery; Surgery date: 6+ months; Surgery type: T spine ; Additional info: M54.6 - pain in thoracic spine TECHNIQUE: Imaging protocol: XR of the entire spine. Evaluation for scoliosis or surgical evaluation. Views: 2 or 3 views. COMPARISON: [place] bone scan whole body* [id number] 02/07/2025 11:15 AM FINDINGS: Bones/joints: S shaped scoliosis thoracic and lumbar spine. Fixation rods appear intact. Narrowing of the mid and lower thoracic disc spaces on the left and L2-L3 and L3-L4 lumbar disc spaces on the right. . Degenerative changes lower thoracic facet joints on the left and mid and lower lumbar facet joints on the right. Prominent left lateral osteophytes at L1-L2 and L2-L3 on the left and mild at L3-L4 on the right. Demineralization consistent with the patient's age. XR/XR scoliosis survey 4-5V [id number] IMPRESSION: 1. S shape thoracolumbar scoliosis. 2. Degenerative changes and disc space narrowing. 3. Hardware appears intact. 4. Demineralization consistent with the patient's age.
== END 2025-09-15 14:36 | disposition home or self-care (01) ==
LOC: RAD 14:37
PROVIDERS: PCP Nurse Practitioner Family; Visit Provider Nurse Practitioner Family
DX: M51.369 Other intervertebral disc degeneration, lumbar region without mention of lumbar back pain or lower extremity pain (principal); M41.9 Scoliosis, unspecified; M41.35 Thoracogenic scoliosis, thoracolumbar region; Z96.89 Presence of other specified functional implants; M81.0 Age-related osteoporosis without current pathological fracture
CPT/HCPCS: 72083; 80053; 80061; 82306; 84443; 85025; G0103

== ENCOUNTER → 2025-10-09 14:32 | Outpatient (BNVA) | payer MEDICARE, SELFPAY | PROVIDERS: PCP Nurse Practitioner Family; Visit Provider Orthopaedic Surgery | DX: M50.321 Other cervical disc degeneration at C4-C5 level (principal); M50.322 Other cervical disc degeneration at C5-C6 level; M43.24 Fusion of spine, thoracic region | CPT/HCPCS: 72050; 72072; 99203 ==

== ENCOUNTER 2025-10-22 13:49 | Oncology outpatient (recurring) (ONCR) | payer MEDICARE, SELFPAY ==
[2025-10-22 14:11] LABS: Hematocrit 30.5 % (37-53); Hemoglobin 10.40 g/dL (11.27-16.99); Mean Corpuscular HGB Conc 34.1 g/dL (30-55); Mean Corpuscular Hemoglobin 31.6 pg (27-33); Mean Corpuscular Volume 92.7 fl (82-101); Nucleated Red Blood Cells % 0 %; Platelet Count 121 10^3/cmm (157-399); Red Blood Count 3.29 10^6/uL (3.85-5.65); White Blood Count 3.19 10^3/uL (3.29-11.43)
[2025-10-22 14:46] LABS: Alanine Aminotransferase 8 U/L (0-41); Albumin Level 4.1 g/dL (3.5-5.2); Alkaline Phosphatase 88 U/L (40-130); Anion Gap 11.0 (5-19); Aspartate Amino Transferase 15 U/L (0-40); Blood Urea Nitrogen 8 mg/dL (8-23); Calcium 9.4 mg/dL (8.5-10.5); Carbon Dioxide 30 mmol/L (22-29); Chloride 98 mmol/L (98-107); Globulin 2.6 g/dL (1.3-4.6); Glucose 135 mg/dL (65-115); Osmolality Calculated 282 mOsm/kg (285-295); Potassium 3.0 mmol/L (3.5-5.1); Sodium 136 mmol/L (136-145); Total Protein 6.7 g/dL (6.6-8.7)
[2025-10-22 15:02] LABS: Ferritin 84 ng/mL (30-400); Iron 77 ug/dL (59-158); Total Iron Binding Capacity 276 mcg/dl; Unsaturated Iron Binding 199 ug/dL (112-347)
[2025-10-23 07:20] LABS: PROTEIN, TOTAL 6.8 g/dL (6.1-8.1)
[2025-10-24 14:30] LABS: KAPPA LIGHT CHAIN, FREE, SERUM 88.5 mg/L (3.3-19.4); KAPPA/LAMBDA LIGHT CHAINS FREE 4.06 (0.26-1.65); LAMBDA LIGHT CHAIN, FREE, SERU 21.8 mg/L (5.7-26.3)
[2025-10-24 16:40] LABS: ALPHA 1 GLOBULIN 0.3 g/dL (0.2-0.3); ALPHA 2 GLOBULIN 0.6 g/dL (0.5-0.9); BETA 1 GLOBULIN 0.4 g/dL (0.4-0.6); BETA 2 GLOBULIN 0.3 g/dL (0.2-0.5)
== END 2025-10-22 23:59 | disposition home or self-care (01) ==
PROVIDERS: Nurse Practitioner Family; PCP Nurse Practitioner Family; Visit Provider Internal Medicine
DX: D47.2 Monoclonal gammopathy (principal); D50.9 Iron deficiency anemia, unspecified; F12.90 Cannabis use, unspecified, uncomplicated; F17.210 Nicotine dependence, cigarettes, uncomplicated; Z71.6 Tobacco abuse counseling; T14.8XXA Other injury of unspecified body region, initial encounter; W57.XXXA Bitten or stung by nonvenomous insect and other nonvenomous arthropods, initial encounter; B88.2 Other arthropod infestations; K92.1 Melena
CPT/HCPCS: 80053; 82728; 82784; 83540; 83550; 83883; 84155; 84165; 85025; 86334; 99214